=== PATIENT | female | born 1970 | race African-American/Black ===

== ENCOUNTER 2024-07-01 15:25 | Emergency (ER) | payer MEDICARE ==
[~2024-07-01] VITALS: Ht 177.8 cm; Wt 188.2 kg
[2024-07-01 15:35] VITALS: PULSE 90; RESP 20; TEMP 98.1; O2SAT 83
== END 2024-07-01 15:44 | disposition short-term general hospital (02) ==
LOC: FSED 15:34
DX: M79.89 Other specified soft tissue disorders (principal)